=== PATIENT | female | born 1975 | race Caucasian/White ===

== ENCOUNTER 2022-07-22 11:48 | Outpatient (CLI) | payer BC, SELFPAY ==
--- NOTE | ~2022-07-22 | XR_ITS ---
Thoracic spine: Clinical Indication: Back pain AP and lateral views were performed. No fracture is seen. There is normal alignment of the vertebrae. The intervertebral disc spaces appe ar normal. Paravertebral soft tissues appear normal. Impression: No significant abnormalities noted. Reviewed, dictated and finalized at [facility]. Impression: No significant abnormalities noted.
--- NOTE | ~2022-07-22 | XR_ITS ---
XR cervical spine 4-5V 07/22/2022 12:38 Indication: Neck pain Procedure: 5 views cervical spine Comparison: 09/30/2006 Findings: Vertebral body heights are maintained. No prevertebral soft tissue swelling. No significant disc narrowing. Lung apices are normal. Odontoid process is normal. Impression: 1: No significant abnormality of the cervical spine. Reviewed, dictated and finalized at [facility]. Impression: 1: No significant abnormality of the cervical spine.
--- NOTE | ~2022-07-22 | XR_ITS ---
Lumbosacral Spine: AP, oblique, and lateral views Clinical History: Pain Findings: The normal lordotic curve is maintained. The vertebral bodies and posterior elements are i ntact. The intervertebral disc spaces are preserved. The sacroiliac joints are normally outlined. Impression: No significant abnormality. Reviewed, dictated and finalized at [facility]. Impression: No significant abnormality.
== END 2022-07-22 11:49 ==
PROVIDERS: Visit Provider Chiropractor
DX: M54.2 Cervicalgia (principal); M54.50 Low back pain, unspecified; G89.29 Other chronic pain
CPT/HCPCS: 72050; 72070; 72110